=== PATIENT | female | born 2000 ===

== ENCOUNTER 2023-06-16 18:05 | Emergency (ER) | payer SELFPAY ==
[2023-06-16] MEDS ORDERED: Lactated Ringers 1,000 ML IV ONE ×2 (18:58→20:34)
[2023-06-16] MEDS ORDERED: Sodium Chloride 0.9% 10 ML Syringe FLUSH PRN (18:58)
[2023-06-16 19:26] LABS: BASOPHILS ABSOLUTE AUTO 0.02 K/uL (0.00-0.20); BASOPHILS PERCENT AUTO 0.2 % (0.0-2.0); EOSINOPHILS ABSOLUTE AUTO 0.02 K/uL (0.00-0.50); EOSINOPHILS PERCENT AUTO 0.2 % (0.0-5.0); HEMATOCRIT 43.7 % (34.0-46.0); HEMOGLOBIN 14.9 g/dL (11.7-15.5); LYMPHOCYTES ABSOLUTE AUTO 2.53 K/uL (0.50-3.50); MEAN CORPUSCULAR HEMOGLOBIN 28.9 pg (28.2-33.3); MEAN CORPUSCULAR HGB CONC 34.1 g/dL (31.7-36.0); MEAN CORPUSCULAR VOLUME 84.7 fL (84.0-98.0); MONOCYTES ABSOLUTE AUTO 0.35 K/uL (0.00-1.00); MONOCYTES PERCENT AUTO 3.5 % (2.0-14.0); NEUTROPHILS ABSOLUTE AUTO 7.21 K/uL (1.40-7.00); NEUTROPHILS PERCENT AUTO 71.1 % (45.0-80.0); PLATELET COUNT,PLT 262 K/uL (150-350); RED BLOOD CELL COUNT 5.16 M/uL (3.77-5.09); RED CELL DISTRIBUTION WIDTH 12.1 % (11.2-14.1); WHITE BLOOD CELL COUNT,WBC 10.1 K/uL (4.0-10.2)
[2023-06-16] MEDS ORDERED: Ondansetron 4 MG/2 ML SDV IVPUSH ONE (19:36)
[2023-06-16 19:45] LABS: ALBUMIN 4.5 g/dL (3.4-5.0); ANION GAP 12.3 meq/L (7-15); BILIRUBIN TOTAL 0.7 mg/dL (0.2-1.0); CALCIUM 9.3 mg/dL (8.5-10.1); CARBON DIOXIDE,CO2 27.7 mmol/L (21.0-32.0); CREATININE 0.72 mg/dL (0.51-1.17); EST CRCL DRUG DOSING (CG) 88.78 mL/min; POTASSIUM,K 3.8 mmol/L (3.5-5.1)
[2023-06-16 19:45] LABS: CORONAVIRUS COVID-19 NAA NEGATIVE (NEGATIVE); INFLUENZA A NAA POSITIVE (NEGATIVE); INFLUENZA B NAA NEGATIVE (NEGATIVE); RESPIRATORY SYNCYTIAL VIR NAA NEGATIVE (NEGATIVE)
[2023-06-16] MEDS ORDERED: Take Home: Ondansetron 4 MG Tab.DIS, 5 Tab Pack PO ONE (20:37)
[2023-06-16] MEDS ORDERED: Prochlorperazine 10 MG/2 ML SDV IV ONE (21:37)
== END 2023-06-16 22:30 | disposition home or self-care (01) ==
LOC: LL.ED 18:05
DX: J10.1 Influenza due to other identified influenza virus with other respiratory manifestations (principal); Z20.822 Contact with and (suspected) exposure to COVID-19
CPT/HCPCS: 0241U; 36415; 80053; 81025; 85025; 96361; 96374; 99284; J2405; J7120; Q0162; 99283